=== PATIENT | female | born 1970 | race African-American/Black ===

== ENCOUNTER 2023-07-09 12:57 | Emergency (ER) | payer SELFPAY ==
[2023-07-09] MEDS ORDERED: NA CHLORIDE 0.9% 1,000 ML ONE ×2 (13:10→14:25)
[2023-07-09] MEDS ORDERED: METOCLOPRAMIDE 10 MG/2mL INJ ONE (13:24)
[2023-07-09 13:25] LABS: Absolute Eosinophils 0.2 K/uL (0-0.5); Absolute Lymphocytes (CBC) 1.6 K/uL (0.7-4.9); Absolute Monocytes 0.8 K/uL (0.1-1.3); Absolute Neutrophil 5.9 K/uL (1.8-8.0); Basophils % 0.5 % (0-1.3); Hematocrit 36.2 % (36.0-45.0); Hemoglobin 11.9 g/dL (12.0-15.0); MCH 27.8 pg (27.0-35.0); MCHC 32.7 g/dL (32.0-36.0); MPV 6.1 fL (7.6-11.3); Monocytes % 8.8 % (3.3-12.3); Neutrophils % 69.7 % (41.7-73.7); Platelets 299 thou/uL (152-406); RBC Red Blood Cell Count 4.26 M/uL (3.86-4.86); Red Cell Distribution Width 18.9 % (12.1-15.2)
[2023-07-09 13:46] LABS: Albumin 3.1 g/dL (3.4-5.0); Albumin/Globulin Ratio 0.7 (1.1-1.8); Anion Gap 10.8 mEq/L (5.0-15.0); Bilirubin Total 0.3 mg/dL (0.2-1.0); Globulin 4.3 g/dL (2.3-3.5); Potassium 3.8 mEq/L (3.5-5.1); Protein, Total 7.4 g/dL (6.4-8.2); Troponin High Sensitivity 42.4 pg/mL (<58.9)
--- NOTE | 2023-07-09 14:17 | RAD REPORT ---
EXAM DESCRIPTION: CT - Head Brain Wo Cont - 07/09/2023 2:00 pm CLINICAL HISTORY: Headache and vomiting COMPARISON: None TECHNIQUE: Computed axial tomography of the head was obtained. IV contrast was not requested. All CT scans are performed using dose optimization technique as appropriate and may include automated exposure control or mA/KV adjustment according to patient size. FINDINGS: An intracranial bleed is not seen The ventricles are normal in caliber No extra-axial fluid collection is noted. Mild low-density areas within periventricular, deep and subcortical white matter likely represent isc hemic changes secondary to small vessel disease. Old fracture medial wall of the left orbit Fluid within the sinuses/ mastoids is not seen. IMPRESSION: No acute intracranial abnormality is seen If patient's symptoms persist MRI of the brain would be recommended
[2023-07-09] MEDS ORDERED: PROMETHAZINE INJ 25 MG/ML AMP ONE (14:25)
--- NOTE | 2023-07-09 15:14 | EDPHYS ---
Physician Documentation [facility] Name: Natalia Ornelas Age: 52 yrs Sex: Female : 1970 Arrival Date: 07/09/2023 Time: 12:57 Bed 2 Private MD: ED Physician Lore Edouard HPI: 07/08 13:58 This 52 yrs old Black Female presents to ER via EMS with complaints of Nausea/Vomiting, sb4 Headache. 14:00 patient states she has been experiencing nausea, vomiting, and headache since about sb4 1030 AM. does report heavy alcohol drinking yesterday. states she woke up feeling okay, took all 5 of her BP meds, then started experiencing these symptoms. is not sure what meds she takes, but denies any changes in them. Historical: - Allergies: 13:03 No Known Allergies; kc6 - PMHx: 13:03 Hypertensive disorder; kc6 - PSHx: 13:03 knee surgery; kc6 - Immunization history:: Adult Immunizations up to date. - Infectious Disease History:: Denies. - Social history:: Smoking status: Patient reports the use of cigarette tobacco products, denies chronic smoking, but will smoke occasionally. ROS: 14:00 Constitutional: Negative for fever, chills, and weight loss, sb4 14:00 Abdomen/GI: Positive for nausea and vomiting, 14:00 Neuro: Positive for headache, 14:00 All other systems are negative, Exam: 14:00 Head/Face: Normocephalic, atraumatic. Eyes: Extra-ocular motions intact. Periorbital sb4 areas with no swelling, redness, or edema. Cardiovascular: Regular rate and rhythm with a normal S1 and S2. Respiratory: Lungs have equal breath sounds bilaterally, clear to auscultation and percussion. No rales, rhonchi or wheezes noted. No increased work of breathing, no retractions or nasal flaring. Abdomen/GI: Soft, non-tender, no distension. Skin: Warm, dry with normal turgor. Normal color with no rashes, no lesions, and no evidence of cellulitis. MS/ Extremity: Pulses equal, no cyanosis. Neurovascular intact. Full, normal range of motion. 14:00 Constitutional: The patient appears alert, awake, obviously ill, Vital Signs: 13:01 BP 166 / 122; Pulse 79; Resp 20 S; Pulse Ox 100% on R/A; Weight 100.7 kg (R); Height 5 kc6 ft. 7 in. (R); 13:18 BP 176 / 105; kc6 14:59 BP 181 / 85; Pulse 57; Resp 16 S; Pulse Ox 97% on R/A; kc6 15:18 BP 178 / 79; Pulse 58; Resp 16; Pulse Ox 100% ; ko1 13:01 Body Mass Index 34.77 (100.70 kg, 170.18 cm) kc6 MDM: 13:03 Patient medically screened. sb4 15:13 Data reviewed: vital signs, nurses notes, EMS record, lab test result(s), radiologic sb4 studies, and as a result, I will discharge patient. Counseling: I had a detailed discussion with the patient and/or guardian regarding the historical points, exam findings, and any diagnostic results supporting the discharge/admit diagnosis, lab results, radiology results, to return to the emergency department if symptoms worsen or persist or if there are any questions or concerns that arise at home. 07/08 13:08 Order name: CBC with Diff; Complete Time: 13:27 sb4 07/08 13:08 Order name: CMP; Complete Time: 13:48 sb4 07/08 13:08 Order name: Lipase; Complete Time: 13:48 sb4 07/08 13:08 Order name: Troponin HS; Complete Time: 13:48 sb4 07/08 13:21 Order name: Glucose, Ancillary Testing; Complete Time: 13:23 EDMS 07/08 13:37 Order name: Head Brain Wo Cont CT; Complete Time: 14:18 sb4 07/08 13:08 Order name: IV Saline Lock; Complete Time: 13:09 sb4 07/08 13:08 Order name: Labs collected and sent; Complete Time: 13:17 sb4 07/08 14:55 Order name: PO challenge; Complete Time: 15:04 sb4 Administered Medications: 13:17 Drug: NS 0.9% IV 1000 ml IV at 1 bolus Per protocol; 1000 mL bolus Route: IV; Rate: 1 kc6 bolus; Site: left antecubital; 13:27 Drug: metoCLOPramide IVP 10 mg IVP once; over 1 to 2 minutes Route: IVP; Site: left ko1 antecubital; 14:23 Follow up: Response: No adverse reaction; Nausea unchanged; Vomiting unchanged kc 14:38 Drug: Promethazine IVP 12.5 mg IVP once Route: IVP; Site: left antecubital; 6 15:00 Follow up: Response: No adverse reaction; Nausea is decreased 1 14:38 Drug: NS 0.9% IV 1000 ml IV at 1 bolus Per protocol; 1000 mL bolus Route: IV; Rate: 1 kc6 bolus; Site: left antecubital; 15:15 Follow up: Response: No adverse reaction; IV Status: Completed infusion; IV Intake: ko1 1000ml Disposition Summary: 07/09/23 15:13 Discharge Ordered Notes: Location: Home sb4 Problem: new sb4 Symptoms: have improved sb4 Condition: Stable sb4 Diagnosis - Nausea with vomiting, unspecified sb4 Followup: sb4 - With: Emergency Department - When: As needed - Reason: Trouble breathing, Worsening of condition Discharge Instructions: - Discharge Summary Sheet sb4 - Nausea and Vomiting, Adult sb4 Forms: - Patient Portal Instructions sb4 - Leadership Thank You Letter sb4 Prescriptions: - ondansetron 8 mg Oral Tablet,disintegrating - take 1 tablet ORAL route every 8 hours; 12 tablet; Refills: 0, Product sb4 Selection Permitted Signatures: Dispatcher [employer] Christi Barbosa RN RN kc6 Kristi Umanzor RN RN ko1 Nona Sanii, PAAriel PAAriel sb4 Corrections: (The following items were deleted from the chart) 13:39 13:39 Head Brain Wo Cont+CT.RAD.BRZ ordered. EDMS EDMS 14:52 14:52 Abdomen Pelvis Wo Con+CT.RAD.BRZ ordered. EDMS EDMS
--- NOTE | 2023-07-09 15:14 | ER ---
Nurse's Notes [facility] Name: Natalia Ornelas Age: 52 yrs Sex: Female : 1970 Arrival Date: 07/09/2023 Time: 12:57 Bed 2 Private MD: Diagnosis: Nausea with vomiting, unspecified Presentation: 07/08 13:01 Chief complaint: EMS states: n/v/, headache that started this morning. pt reports heavy kc6 ETOH use yesterday. pt actively vomiting bile in triage. 4mg of IV zofran given en route. Coronavirus screen: At this time, the client does not indicate any symptoms associated with coronavirus-19. Ebola Screen: No symptoms or risks identified at this time. Initial Sepsis Screen: Does the patient meet any 2 criteria? No. Patient's initial sepsis screen is negative. Does the patient have a suspected source of infection? No. Patient's initial sepsis screen is negative. Risk Assessment: Do you want to hurt yourself or someone else? Patient reports no desire to harm self or others. Onset of symptoms was July 09, 2023. 13:01 Method Of Arrival: EMS: [facility] kc6 13:01 Acuity: IJEOMA 2 kc6 Triage Assessment: 13:03 General: Appears in no apparent distress. uncomfortable, well groomed, well developed, kc6 Behavior is cooperative, appropriate for age. EENT: No signs and/or symptoms were reported regarding the EENT system. Neuro: Level of Consciousness is awake, alert, obeys commands, Oriented to person, place, time, situation, Appropriate for age Reports dizziness, headache weakness. Cardiovascular: Capillary refill < 3 seconds. Respiratory: Airway is patent Trachea midline Respiratory effort is even, unlabored, Respiratory pattern is regular, symmetrical. GI: Abdomen is round non-distended, Bowel sounds present X 4 quads. Abd is soft and non tender X 4 quads. Reports nausea, vomiting, Patient currently denies abdominal pain, diarrhea. : No signs and/or symptoms were reported regarding the genitourinary system. Derm: Skin is intact, is healthy with good turgor, Skin is diaphoretic, Skin is normal, Skin temperature is cool. Musculoskeletal: No signs and/or symptoms reported regarding the musculoskeletal system. Circulation, motion, and sensation intact. Capillary refill < 3 seconds, Range of motion: intact in all extremities. Historical: - Allergies: 13:03 No Known Allergies; kc6 - PMHx: 13:03 Hypertensive disorder; kc6 - PSHx: 13:03 knee surgery; kc6 - Immunization history:: Adult Immunizations up to date. - Infectious Disease History:: Denies. - Social history:: Smoking status: Patient reports the use of cigarette tobacco products, denies chronic smoking, but will smoke occasionally. Screenin:04 [facility] ED Fall Risk Assessment (Adult) History of falling in the last 3 months, kc6 including since admission No falls in past 3 months (0 pts) Confusion or Disorientation No (0 pts) Intoxicated or Sedated No (0 pts) Impaired Gait No (0 pts) Mobility Assist Device Used No (0 pt) Altered Elimination No (0 pt) Score/Fall Risk Level 0 - 2 = Low Risk. Abuse screen: Denies threats or abuse. Denies injuries from another. Nutritional screening: No deficits noted. Tuberculosis screening: No symptoms or risk factors identified. Assessment: 13:04 Reassessment: please see triage. kc6 13:30 Pain: Complains of pain in forehead and abdomen. GI: Pt is actively vomiting bile. ko1 14:04 Reassessment: Patient appears in no apparent distress at this time. No changes from kc6 previously documented assessment. Patient and/or family updated on plan of care and expected duration. Pain level reassessed. Patient is alert, oriented x 3, equal unlabored respirations, skin warm/dry/pink. 14:59 Reassessment: Patient appears in no apparent distress at this time. No changes from kc6 previously documented assessment. Patient and/or family updated on plan of care and expected duration. Pain level reassessed. Patient is alert, oriented x 3, equal unlabored respirations, skin warm/dry/pink. Vital Signs: 13:01 BP 166 / 122; Pulse 79; Resp 20 S; Pulse Ox 100% on R/A; Weight 100.7 kg (R); Height 5 kc6 ft. 7 in. (R); 13:18 BP 176 / 105; kc6 14:59 BP 181 / 85; Pulse 57; Resp 16 S; Pulse Ox 97% on R/A; kc6 15:18 BP 178 / 79; Pulse 58; Resp 16; Pulse Ox 100% ; ko1 13:01 Body Mass Index 34.77 (100.70 kg, 170.18 cm) kc6 ED Course: 13:01 Patient arrived in ED. kc6 13:03 Triage completed. kc6 13:03 Nona Saini PA-C is PHCP. sb4 13:03 Lore Edouard MD is Attending Physician. sb4 13:03 Arm band placed on. kc6 13:04 Maintain EMS IV. Dressing intact. Good blood return noted. Site clean \T\ dry. Gauge \T\ kevin 6 site: 20G LAC. 13:05 Patient has correct armband on for positive identification. Placed in gown. Bed in low kc6 position. Call light in reach. Side rails up X2. Client placed on continuous cardiac and pulse oximetry monitoring. NIBP monitoring applied. office assistant on. Warm blanket given. 13:09 Christi Ramon RN is Primary Nurse. kc6 14:01 Head Brain Wo Cont CT In Process Unspecified. EDMS 15:04 Diet: Patient given water. kc6 15:18 Provided Education on: call light. ko1 15:18 No provider procedures requiring assistance completed. IV discontinued, intact, ko1 bleeding controlled, No redness/swelling at site. Pressure dressing applied. Administered Medications: 13:17 Drug: NS 0.9% IV 1000 ml IV at 1 bolus Per protocol; 1000 mL bolus Route: IV; Rate: 1 kc6 bolus; Site: left antecubital; 13:27 Drug: metoCLOPramide IVP 10 mg IVP once; over 1 to 2 minutes Route: IVP; Site: left ko1 antecubital; 14:23 Follow up: Response: No adverse reaction; Nausea unchanged; Vomiting unchanged kc6 14:38 Drug: Promethazine IVP 12.5 mg IVP once Route: IVP; Site: left antecubital; kc6 15:00 Follow up: Response: No adverse reaction; Nausea is decreased ko1 14:38 Drug: NS 0.9% IV 1000 ml IV at 1 bolus Per protocol; 1000 mL bolus Route: IV; Rate: 1 kc6 bolus; Site: left antecubital; 15:15 Follow up: Response: No adverse reaction; IV Status: Completed infusion; IV Intake: ko1 1000ml Medication: 15:18 VIS not applicable for this client. ko1 Intake: 15:15 IV: 1000ml; Total: 1000ml. ko1 Outcome: 15:13 Discharge ordered by . sb4 15:31 Discharged to home via wheelchair, with family, ko1 15:31 Condition: improved 15:31 Discharge instructions given to patient, Instructed on discharge instructions, follow up and referral plans. medication usage, Demonstrated understanding of instructions, follow-up care, medications, Prescriptions given X 1, 15:32 Patient left the ED. ko1 Signatures: Dispatcher [employer] EDChristi Hatfield RN RN kc6 Kristi Umanzor RN RN ko1 Nona Saini, PA-C PA-C sb4 Corrections: (The following items were deleted from the chart) 13:04 13:01 Pulse 79bpm; Resp 20bpm; Spontaneous; Pulse Ox 100% RA; 100.7 kg Reported; Height kc6 5 ft. 7 in. Reported; BMI: 34.7; kc6 15:00 14:59 Reassessment: Patient appears in no apparent distress at this time. No changes kc6 from previously documented assessment. Patient and/or family updated on plan of care and expected duration. Pain level reassessed. Patient is alert, oriented x 3, equal unlabored respirations, skin warm/dry/pink. kc6 15:02 14:59 Pulse 57bpm; Resp 16bpm; Spontaneous; Pulse Ox 97% RA; kc6 kc6
[2023-07-09 16:10] VITALS: BP 178/79; O2SAT 100
== END 2023-07-09 15:32 | disposition home or self-care (01) ==
LOC: ER 12:57
DX: R11.2 Nausea with vomiting, unspecified (principal); R51.9 Headache, unspecified; F17.210 Nicotine dependence, cigarettes, uncomplicated
CPT/HCPCS: 36415; 70450; 80053; 82947; 83690; 84484; 85025; 96361; 96374; 96375; 99285; J2550; J2765; J7030

== ENCOUNTER 2023-11-07 06:12 | Observation (INO) | payer OTHER ==
[2023-11-02 10:43] LABS: Specific Gravity 1.008 (1.005-1.030); Sqamous Epithelial <5 /HPF (None Seen); Urine Bacteria <20 /HPF (<20); Urine Bilirubin NEGATIVE (Negative); Urine Blood Negative (Negative); Urine Clarity Turbid (Clear); Urine Color Colorless (Yellow); Urine Culture Reflex Order NOT NEEDED; Urine Glucose NEGATIVE (Negative); Urine Ketones NEGATIVE (Negative); Urine Microscopic Reflex YN ORDER UMIC; Urine Nitrite NEGATIVE (Negative); Urine Protein 1+ (Negative); Urine RBC None Seen /HPF (None Seen); Urine Urobilinogen Normal (Normal); Urine WBC <5 /HPF (<5)
[2023-11-02 10:48] LABS: Absolute Basophils 0.1 K/uL (0-0.5); Absolute Eosinophils 0.3 K/uL (0-0.5); Absolute Lymphocytes (CBC) 1.4 K/uL (0.7-4.9); Absolute Monocytes 0.5 K/uL (0.1-1.3); Absolute Neutrophil 4.7 K/uL (1.8-8.0); Basophils % 0.8 % (0-1.3); Eosinophils % 4.3 % (0-4.4); Hematocrit 41.2 % (36.0-45.0); Hemoglobin 13.2 g/dL (12.0-15.0); Lymphocytes % 20.7 % (15.3-44.8); MCH 28.3 pg (27.0-35.0); MCHC 32.1 g/dL (32.0-36.0); MCV 88.3 fL (80-100); MPV 6.6 fL (7.6-11.3); Monocytes % 7.2 % (3.3-12.3); Platelets 300 thou/uL (152-406); RBC Red Blood Cell Count 4.67 M/uL (3.86-4.86); Red Cell Distribution Width 15.7 % (12.1-15.2)
[2023-11-02 10:51] LABS: PT Prothrombin Time 10.2 SECONDS (9.4-12.5); PTT, Activated Partial Thromb 29.6 SECONDS (24.3-36.9); Protime INR 0.91
--- NOTE | 2023-11-02 10:59 | RAD REPORT ---
EXAM DESCRIPTION: Madison Jarquin (2 Views)11/02/2023 10:45 am CLINICAL HISTORY: Preop for hip surgery COMPARISON: None FINDINGS: The lungs appear clear of acute infiltrate. The heart is mildly enlarged IMPRESSION: No acute abnormalities displayed
[2023-11-02 11:00] LABS: Albumin 3.6 g/dL (3.4-5.0); Albumin/Globulin Ratio 0.8 (1.1-1.8); Anion Gap 11.4 mEq/L (5.0-15.0); Bilirubin Total 0.4 mg/dL (0.2-1.0); Globulin 4.3 g/dL (2.3-3.5); Potassium 4.4 mEq/L (3.5-5.1); Protein, Total 7.9 g/dL (6.4-8.2)
--- NOTE | 2023-11-03 13:30 | EKG ---
Test Date: 2023-11-02 Test Time: 10:24:33 Mink Slicer: JUVENTINO MEASUREMENT RESULTS: Intervals: Rate: 69 AL: 250 QRSD: 100 QT: 430 QTc: 460 Melbeta: P: 65 AL: 250 QRS: 66 T: 70 INTERPRETIVE STATEMENTS: Sinus rhythm with 1st degree AV block Otherwise normal ECG No previous ECG available for comparison Electronically Signed On 11-03-23 13:28:04 CDT by Sterling Ramos
[~2023-11-07 06:12] MED LIST: BUPIVACAINE 0.75% (PF) 2 ML SP ONE; DEXMEDETOMIDINE HCL 200 MCG/2 ML VIAL ONE; EPINEPHRINE 1 MG/ML VIAL ONE; MAGNESIUM SULFATE 1 gm IVPB 1 GM/100 ML BAG IV ONE; MORPHINE SULFATE/PF 1 MG/ML (10 ML AMP) ONE; ROPLVACAINE HCL 0 ML ONE; dexAMETHasone 10 MG/ML VIAL ONE
[2023-11-07] MEDS ORDERED: MORPHINE SULFATE/PF 1 MG/ML (10 ML AMP) ONE (06:24)
[2023-11-07] MEDS ORDERED: dexAMETHasone 10 MG/ML VIAL ONE (06:24)
[2023-11-07] MEDS ORDERED: MAGNESIUM SULFATE 1 gm IVPB 1 GM/100 ML BAG IV ONE (06:24)
[2023-11-07] MEDS ORDERED: DEXMEDETOMIDINE HCL 200 MCG/2 ML VIAL ONE (06:24)
[2023-11-07] MEDS ORDERED: EPINEPHRINE 1 MG/ML VIAL ONE ×2 (06:24)
[2023-11-07] MEDS ORDERED: FENTANYL CITR 100 MCG/2 ML ONE (06:24)
[2023-11-07] MEDS ORDERED: ROPLVACAINE HCL 40 ML ONE (06:24)
[2023-11-07] MEDS ORDERED: BUPIVACAINE 0.75% (PF) 2 ML SP ONE (06:24)
[2023-11-07] MEDS ORDERED: ONDANSETRON 4 MG/2 ML VIAL ONE (06:25)
[2023-11-07] MEDS ORDERED: MIDAZOLAM HCL 2 MG/2 ML INJ ONE ×2 (06:26→06:59)
[2023-11-07] MEDS: Ringers Lactate 1,000 ML IV ONE ×3 (06:29→10:00)
[2023-11-07] MEDS: GABAPENTIN 100 MG CAP ONE (06:35)
[2023-11-07] MEDS: CELECOXIB 100 MG CAPSULE ONE (06:35)
[2023-11-07] MEDS: ACETAMINOPHEN 500 MG TAB ONE (06:35)
[2023-11-07] MEDS: Oxycodone HCl/Acetaminophen 5/325 MG TAB ONE (06:35)
[2023-11-07] MEDS ORDERED: LIDOCAINE 2% MPF 5 ML VIAL ONE ×3 (06:38→07:35)
[2023-11-07] MEDS ORDERED: LIDOCAINE 1% MPF 5 ML VIAL ONE (06:38)
[2023-11-07] MEDS: TRANEXAMIC ACID 1,000 MG/10 ML VIAL IV ONE (06:40)
[2023-11-07] MEDS: CEFAZOLIN SODIUM 2 GM/VIAL ONE (07:00)
[2023-11-07] MEDS ORDERED: KETAMINE HCL IN 0.9 % NACL 50 MG/5 ML SYRINGE IV ONE (07:35)
[2023-11-07] MEDS ORDERED: EPHEDRINE SULF 50 MG/ML VIAL ONE (08:16)
[2023-11-07] MEDS ORDERED: propofoL 200 MG/20 ML VIAL IV ONE (09:40)
[2023-11-07] MEDS ORDERED: DOCUSATE NA 100 MG CAP PO PRN (10:24)
--- NOTE | 2023-11-07 10:32 | P.BOP ---
Preoperative diagnosis: right hip severe arthritis Postoperative diagnosis: same Primary procedure: right total hip arthoplasty Estimated blood loss: 100 ccs Anesthesia: General Complications: Other Complications: Crack of greater trochanter tip, hook plate placed. Transferred to: Recovery Room Condition: Good
--- NOTE | 2023-11-07 10:53 | RAD REPORT ---
EXAM DESCRIPTION: RAD - Hip Right 1 View - 11/07/2023 10:03 am CLINICAL HISTORY: RT TOTAL HIP COMPARISON: No comparisons TECHNIQUE: Right hip, 3 intraoperative views. FINDINGS: Components of a right hip prothesis have been placed, unclear whether the femoral head com ponent was placed on the last image sent to PACs. Hardware is in expected location. Other surgical me tallic instruments in place which obscure evaluation. IMPRESSION: Intraoperative right hip prosthesis components as above.
[2023-11-07] MEDS: HYDROMORPHONE HCL 1 MG/ML INJ ONE (11:05)
--- OUTSIDE RECORDS SUMMARY | 2023-11-07 11:18 | XMS REPORT | Continuity of Care Document ---
Author Name Unknown Address [address] [facility] [address] [place] [address] [facility] thconnect Address [address] [facility] [place] [address] Care Team Providers Care Assembler For Puller Over Hand Name Role Phone Elena Higgins Primary Care Physician Medications Ordered Medication Name Filled Medication Name Start Date Stop Date Current Medication? Ordering Clinician Indication Dosage Frequency Signature (SIG) Comments Components Source losartan 100 mg tablet 15 00:00: 00 Yes mg Francisco Lim chlorthalid one 50 mg tablet 15 00:00: 00 Yes 1mg Francisco Lim amlodipine 10 mg tablet -15 00:00: 00 Yes 1mg Francisco Lim clonidine HCl 0.2 mg tablet 15 00:00: 00 Yes 1mg Francisco Lim cyclobenzap rine 10 mg tablet -15 00:00: 00 Yes 1mg Francisco Lim chlorthalid one 25 mg tablet 6-20 00:00: 00 Yes 1mg Francisco Lim amoxicillin 875 mg-potassiu m clavulanate 125 mg tablet -08 00:00: 00 Yes 1mg Francisco Lim clonidine HCl 0.2 mg tablet 5-08 00:00: 00 Yes 1mg Francisco Lim Vitamin D3 25 mcg (1,000 unit) tablet 5-08 00:00: 00 Yes 1(1,000 unit) Francisco Lim chlorthalid one 25 mg tablet 5- 00:00: 00 Yes 1mg Francisco Lim losartan 100 mg tablet 4-08 00:00: 00 Yes mg Francisco Lim amlodipine 10 mg tablet 06-18 00:00: 00 Yes 1mg Francisco Lim meloxicam 15 mg tablet 06-18 00:00: 00 Yes 1mg Francisco Lim tizanidine 2 mg tablet 06-18 00:00: 00 Yes 1mg Francisco Lim clonidine HCl 0.1 mg tablet 06-18 00:00: 00 Yes 1mg Francisco Lim Vital Signs Vital Name Observation Time Observation Value Comments S abel BP Systolic 2023-09-27 11:08:00 110 mm[Hg] Step hen F Raphael BP Diastolic 2023-09-27 11:08:00 82 mm[Hg] Miller phen F Raphael Weight Measured 2023-09-27 11:08:00 233.00 pounds Francisco Lim Height Measured 2023-09-27 11:08:00 67.00 inches Francisco Lim Body Temperature 2023-09-27 11:08:00 98.00 degrees Francisco Lim Heart Rate 2023-09-27 11:08:00 64.00 /min Serena en F Raphael Respiratory Rate 2023-09-27 11:08:00 20.00 /min Francisco F Raphael BP Systolic 2023-09-25 13:18:00 191 mm[Hg] Step hen F Raphael BP Diastolic 2023-09-25 13:18:00 112 mm[Hg] Miller phen F Raphael Weight Measured 2023-09-25 13:18:00 231.40 pounds Francisco Lim Height Measured 2023-09-25 13:18:00 67.00 inches Francisco Lim Body Temperature 2023-09-25 13:18:00 97.30 degrees Francisco Lim Heart Rate 2023-09-25 13:18:00 75.00 /min Serena en F Raphael Respiratory Rate 2023-09-25 13:18:00 19.00 /min Francisco F Rapahel Respiratory Rate 2023-07-19 16:54:00 18.00 /min Francisco F Raphael BP Systolic 2023-07-19 16:54:00 164 mm[Hg] Step hen F Raphael BP Diastolic 2023-07-19 16:54:00 110 mm[Hg] Miller phen F Raphael Weight Measured 2023-07-19 16:54:00 229.40 pounds Francisco F Raphael Height Measured 2023-07-19 16:54:00 67.00 inches Francisco F Raphael Body Temperature 2023-07-19 16:54:00 97.40 degrees Francisco F Raphael Heart Rate 2023-07-19 16:54:00 74.00 /min Serena en F Raphael BP Systolic 2023-07-12 14:44:00 185 mm[Hg] Step hen F Raphael BP Diastolic 2023-07-12 14:44:00 127 mm[Hg] Miller phen F Raphael Weight Measured 2023-07-12 14:44:00 Francisco F Raphael Height Measured 2023-07-12 14:44:00 67.00 inches Francisco F Raphael Body Temperature 2023-07-12 14:44:00 97.20 degrees Francisco F Raphael Heart Rate 2023-07-12 14:44:00 64.00 /min Serena en F Raphael Respiratory Rate 2023-07-12 14:44:00 Francisco F Raphael Body Temperature 2023-06-19 13:25:00 98.10 degrees Francisco F Raphael Heart Rate 2023-06-19 13:25:00 70.00 /min Serena en F Raphael Respiratory Rate 2023-06-19 13:25:00 20.00 /min Francisco F Raphael BP Systolic 2023-06-19 13:25:00 170 mm[Hg] Step hen F Raphael BP Diastolic 2023-06-19 13:25:00 120 mm[Hg] Miller phen F Raphael Weight Measured 2023-06-19 13:25:00 226.00 pounds Francisco Lim Height Measured 2023-06-19 13:25:00 67.00 inches Francisco Lim Encounters Start Date/Time End Date/Time Encounter Type Ad[facility] Encounter ID Source 2023-10-17 00:00:00 2023-10-17 00:00:[address] [facility] [id number] Francisco Lim 2023-09-27 10:54:24 2023-09-27 10:54:[address] [facility] [id number] Francisco Lim 2023-09-27 00:00:00 2023-09-27 00:00:00 Outpatient Visit SFA [id number] Francisco Lim 2023-09-25 13:18:24 2023-09-25 13:18:24 Outpatient SFA SFA [id number] Francisco Lim 2023-09-25 00:00:00 2023-09-25 00:00:00 Outpatient Visit SFA [id number] Francisco Lim 2023-07-19 16:50:10 2023-07-19 16:50:10 Outpatient SFA SFA [id number] Francisco Lim 2023-07-18 00:00:00 2023-07-18 00:00:00 Outpatient Visit SFA [id number] Francisco Lim 2023-07-12 14:43:51 2023-07-12 14:43:51 Outpatient SFA SFA [id number] Francisco Lim 2023-07-12 00:00:00 2023-07-12 00:00:00 Outpatient Visit SFA [id number] Francisco Lim 2023-07-07 09:43:34 2023-07-07 09:43:34 Outpatient SFA SFA [id number] Francisco Lim 2023-06-22 08:31:05 2023-06-22 08:31:05 Outpatient SFA SFA [id number] Francisco Lim 2023-06-22 00:00:00 2023-06-22 00:00:00 Outpatient Visit SFA [id number] Francisco Lim 2023-06-19 13:23:53 2023-06-19 13:23:53 Outpatient SFA SFA [id number] Francisco Lim 2023-06-19 00:00:00 2023-06-19 00:00:[address] [facility] [id number] Francisco Lim Results Test Description Test Time Test Comments Results Result Co mments Source RENIN [id number] 00:00:00* Test Item Value Reference Range Interpretation Comme nts RENIN ACTIVITY (test code = 80298) 1.4 ng/mL/hr Francisco Antony AustinRENIN [id number] 00:00:00* Test Item Value Reference Range Interpretation Comme nts RENIN ACTIVITY (test code = 28961) 1.4 ng/mL/hr Francisco Cassia AustinRENIN [id number] 00:00:00* Test Item Value Reference Range Interpretation Comme nts RENIN ACTIVITY (test code = 44336) 1.4 ng/mL/hr Francisco Antony AustinRENIN [id number] 00:00:00* Test Item Value Reference Range Interpretation Comme nts RENIN ACTIVITY (test code = 09922) 1.4 ng/mL/hr Francisco LimMETANEPHRINES, [id number] 19:04:24* Test Item Value Reference Range Interpretation Comme nts NORMETANEPHRINE, FREE (test code = 64256) 0.51 nmol/L 0.00-0.89 METANEPHRINE, FREE (test code = 99753) 0.16 nmol/L 0.00-0.49 INTERPRETATION (test code = 19507) See Note INTERPRETIVE INFORMATION: Metanephrines, Plasma (Free)This test is useful in the detection of pheochromocytoma, a rare neuroendocrine tumor. The majority of patients with pheochromocytoma have a plasma normetanephrine concentration in excess of 2.2 nmol/L and/or a metanephrine concentration in excess of 1.1 nmol/L. Increased concentrations of these analytes serve as confirmation for diagnosis. Patients with essential hypertension and plasma concentrations of normetanephrine below 0.9 nmol/L and a metanephrine concentration below 0.5 nmol/L, can be excluded from further testing. If clinical suspicion remains, repeat testing or testing for metanephrines in a 24-hr. urine specimen should be considered.This test was developed and its performance characteristics determined by [employer]. It has not been cleared or approved by the [place] Food and Drug Administration. This test was performed in a CLIA certified laboratory and is intended for clinical purposes. TESTING PERFORMED AT [facility], [address] [address] [facility] [place]. [id number] CLIA NO. [id number] METANEPHRINES, [id number] 00:00:00* Test Item Value Reference Range Interpretation Comme nts NORMETANEPHRINE, FREE (test code = 59302) 0.51 nmol/L METANEPHRINE, FREE (test cod e = 27489) 0.16 nmol/L INTERPRETATION (test code = 27920) See Note Francisco Cassia AustinMETANEPHRINES, [id number] 00:00:00* Test Item Value Reference Range Interpretation Comme nts NORMETANEPHRINE, FREE (test code = 33104) 0.51 nmol/L METANEPHRINE, FREE (test cod e = 77116) 0.16 nmol/L INTERPRETATION (test code = 53657) See Note Francisco Cassia AustinMETANEPHRINES, [id number] 00:00:00* Test Item Value Reference Range Interpretation Comme nts NORMETANEPHRINE, FREE (test code = 59709) 0.51 nmol/L METANEPHRINE, FREE (test cod e = 75029) 0.16 nmol/L INTERPRETATION (test code = 87795) See Note Francisco Cassia AustinMETANEPHRINES, [id number] 00:00:00* Test Item Value Reference Range Interpretation Comme nts NORMETANEPHRINE, FREE (test code = 03774) 0.51 nmol/L METANEPHRINE, FREE (test cod e = 89002) 0.16 nmol/L INTERPRETATION (test code = 19276) See Note Francisco Cassia [id number] 11:10:55* Test Item Value Reference Range Interpretation Comme nts ALDOSTERONE (test code = 4201) 13.1 NG/DL SEE BELOW EFFECTIVE 2020, PLEASE NOTE NEW REFERENCE RANGE. REFERENCE RANGE INFORMATION POSTURE INTERVAL - UPRIGHT. . . . . . . . . 4.0-31.0 NG/DL - SUPINE . . . . . . . . . . <16.0 NG/DL - NOT SPECIFIED. . . . . . . <=31.0 NG/DL SERUM ALDOSTERONE LEVELS ARE SENSITIVE TO SODIUM INTAKE AND WHETHERTHE PATIENT IS UPRIGHT OR SUPINE. HIGH SODIUM INTAKE MAY SUPPRESSALDOSTERONE LEVELS IN THE SERUM WHILE LOW SODIUM INTAKE MAY RESULT INELEVATION OF SERUM ALDOSTERONE. REFERENCE INTERVALS ARE BASED ONNORMAL SODIUM INTAKE. ALDOSTERONE AND RENIN RESULTS MAY BE AFFECTEDBY CERTAIN CLASSES OF ANTI-HYPERTENSIVE DRUGS, NSAIDs, POTASSIUMSTATUS, AND DIURETICS, PARTICULARLY MINERALOCORTICOID ANTAGONISTS. VITAMIN D, 25 [id number] 06:32:43* Test Item Value Reference Range Interpretation Comme [facility] VITAMIN D, 25 OH (test code = 4958) 16 NG/ML SEE BELOW L NOTE: 25-HYDR OXYVITAMIN D ASSAY INCLUDES 25-HYDROXYVITAMIN D2 AND D3. INTERPRETIVE RANGES PEDIATRIC (<17 YEARS) . . . . . . . . . . . NG/ML 20-100ADULT: INSUFFICIENT . . . . . . . . . . . . . . NG/ML <20 SUBOPTIMAL . . . . . . . . . . . . . . . NG/ML 20-29 OPTIMAL . . . . . . . . . . . . . . . . . NG/ML 30-100 UNLESS OTHERWISE INDICATED, ALL TESTING PERFORMED AT [facility] [address] [place] [address] [employer] SUPERVISOR: DARSHAN TRINIDAD M.D. [place] NUMBER [id number] [facility] [place]. [id number] TSH, THIRD [id number] 06:32:15* Test Item Value Reference Range Interpretation Comme [facility] TSH, THIRD GENERATION (test code = 2821) 1.090 UIU/ML 0.400-4.100 COMPREHENSIVE METABOLIC [id number] 06:31:35* Test Item Value Reference Range Interpretation Comme [facility] GLUCOSE (test code = 2217) 101 MG/DL 70-99 H BUN (test code = 2208) 25 MG/DL 6-20 H CREATININE (test code = 2214) 1.62 MG/DL 0.60-1.30 H eGFR (2020 CKD-EPI) (test co de = 78776) 38 ML/MIN/1.73 >60 L CALC BUN/CREAT (test code = 2235) 15 RATIO 6-28 SODIUM (test code = 2231) 138 MEQ/L 133-146 POTASSIUM (test code = 2228) 4.5 MEQ/L 3.5-5.4 CHLORIDE (test code = 2215) 102 MEQ/L 95-107 CARBON DIOXIDE (test code = 2206) 23 MEQ/L 19-31 CALCIUM (test code = 2209) 10.0 MG/DL 8.5-10.5 PROTEIN, TOTAL (test code = 2229) 7.2 G/DL 6.1-8.3 ALBUMIN (test code = 2201) 4.3 G/DL 3.5-5.2 CALC GLOBULIN (test code = 2240) 2.9 G/DL 1.9-3.7 CALC A/G RATIO (test code = 2234) 1.5 RATIO 1.0-2.6 BILIRUBIN, TOTAL (test code = 220) 0.4 MG/DL <=1.2 ALKALINE PHOSPHATASE (test code = 220) 110 U/L 40-132 AST (test code = 2218) 16 U/L 9-40 ALT (test code = 221) 11 U/L 5-40 LIPID [id number] 06:31:35* Test Item Value Reference Range Interpretation Comme nts CHOLESTEROL (test code = 2210) 267 MG/DL <200 H TRIGLYCERIDES (test code = 2232) 88 MG/DL <150 HDL CHOLESTEROL (test code = 2220) 133 MG/DL >39 CALC LDL CHOL (test code = 2237) 115 MG/DL <100 H NOTE: CALCULATED LDL IS BASED ON MIRIAM-LUKE METHOD WHICHINCLUDES ADJUSTABLE TRIGLYCERIDE:VLDL CHOLESTEROL RATIO.THIS FACTOR VARIES BY MEASURED TRIGLYCERIDE AND NON-HDLCHOLESTEROL CONCENTRATIONS WITH INCREASED CALCULATED LDL SEENIN HIGHER TRIGLYCERIDE OR LOWER NON-HDL SPECIMENS. FOR MOREINFORMATION, SEE CLIENT ANNOUNCEMENT AT [email or web address] RISK RATIO LDL/HDL (test code = 2238) 0.86 RATIO <3.22 COMPREHENSIVE METABOLIC PANEL [ADDED]2023-07-13 00:00:00* Test Item Value Reference Range Interpretation Comme nts GLUCOSE (test code = 2217) 101 MG/DL BUN (test code = 2208) 25 MG/DL CREATININE (test code = 2214) 1.62 MG/DL eGFR (2020 CKD-EPI) (test co de = 56758) 38 ML/MIN/1.73 CALC BUN/CREAT (test code = 2235) 15 RATIO SODIUM (test code = 2231) 138 MEQ/L POTASSIUM (test code = 2228) 4.5 MEQ/L CHLORIDE (test code = 2215) 102 MEQ/L CARBON DIOXIDE (test code = 2206) 23 MEQ/L CALCIUM (test code = 2209) 10.0 MG/DL PROTEIN, TOTAL (test code = 2229) 7.2 G/DL ALBUMIN (test code = 2201) 4.3 G/DL CALC GLOBULIN (test code = 2240) 2.9 G/DL CALC A/G RATIO (test code = 2234) 1.5 RATIO BILIRUBIN, TOTAL (test code = 2207) 0.4 MG/DL ALKALINE PHOSPHATASE (test code = 2204) 110 U/L AST (test code = 221) 16 U/L ALT (test code = 2219) 11 U/L Francisco Antony RaphaelLIPID PANEL [ADDED]2023-07-13 00:00:00* Test Item Value Reference Range Interpretation Comme nts CHOLESTEROL (test code = 2210) 267 MG/DL TRIGLYCERIDES (test code = 2232) 88 MG/DL HDL CHOLESTEROL (test code = 2220) 133 MG/DL CALC LDL CHOL (test code = 2237) 115 MG/DL RISK RATIO LDL/HDL (test cod e = 2238) 0.86 RATIO Farncisco LimTSH, THIRD GENERATION [ADDED]2023-07-13 00:00:00* Test Item Value Reference Range Interpretation Comme nts TSH, THIRD GENERATION (test code = 2821) 1.090 UIU/ML Francisco Antony RaphaelVITAMIN D, 25 OH [ADDED]2023-07-13 00:00:00* Test Item Value Reference Range Interpretation Comme nts VITAMIN D, 25 OH (test code = 4958) 16 NG/ML Francisco [id number] 00:00:00* Test Item Value Reference Range Interpretation Comme nts ALDOSTERONE (test code = 4201) 13.1 NG/DL Francisco Antony RaphaelCOMPREHENSIVE METABOLIC PANEL [ADDED]2023-07-13 00:00:00* Test Item Value Reference Range Interpretation Comme nts GLUCOSE (test code = 2217) 101 MG/DL BUN (test code = 2208) 25 MG/DL CREATININE (test code = 2214) 1.62 MG/DL eGFR (2020 CKD-EPI) (test co de = 23050) 38 ML/MIN/1.73 CALC BUN/CREAT (test code = 2235) 15 RATIO SODIUM (test code = 2231) 138 MEQ/L POTASSIUM (test code = 2228) 4.5 MEQ/L CHLORIDE (test code = 2215) 102 MEQ/L CARBON DIOXIDE (test code = 2206) 23 MEQ/L CALCIUM (test code = 2209) 10.0 MG/DL PROTEIN, TOTAL (test code = 2229) 7.2 G/DL ALBUMIN (test code = 2201) 4.3 G/DL CALC GLOBULIN (test code = 2240) 2.9 G/DL CALC A/G RATIO (test code = 2234) 1.5 RATIO BILIRUBIN, TOTAL (test code = 2207) 0.4 MG/DL ALKALINE PHOSPHATASE (test code = 2204) 110 U/L AST (test code = 2218) 16 U/L ALT (test code = 2219) 11 U/L Francisco Cassia RaphaelLIPID PANEL [ADDED]2023-07-13 00:00:00* Test Item Value Reference Range Interpretation Comme nts CHOLESTEROL (test code = 2210) 267 MG/DL TRIGLYCERIDES (test code = 2232) 88 MG/DL HDL CHOLESTEROL (test code = 2220) 133 MG/DL CALC LDL CHOL (test code = 2237) 115 MG/DL RISK RATIO LDL/HDL (test cod e = 2238) 0.86 RATIO Francisco Antony RaphaelTSH, THIRD GENERATION [ADDED]2023-07-13 00:00:00* Test Item Value Reference Range Interpretation Comme nts TSH, THIRD GENERATION (test code = 2821) 1.090 UIU/ML Francisco Cassia RaphaelVITAMIN D, 25 OH [ADDED]2023-07-13 00:00:00* Test Item Value Reference Range Interpretation Comme nts VITAMIN D, 25 OH (test code = 4958) 16 NG/ML Francisco Antony [id number] 00:00:00* Test Item Value Reference Range Interpretation Comme nts ALDOSTERONE (test code = 4201) 13.1 NG/DL Francisco Cassia RaphaelCOMPREHENSIVE METABOLIC PANEL [ADDED]2023-07-13 00:00:00* Test Item Value Reference Range Interpretation Comme nts GLUCOSE (test code = 2217) 101 MG/DL BUN (test code = 2208) 25 MG/DL CREATININE (test code = 2214) 1.62 MG/DL eGFR (2020 CKD-EPI) (test co de = 13367) 38 ML/MIN/1.73 CALC BUN/CREAT (test code = 2235) 15 RATIO SODIUM (test code = 2231) 138 MEQ/L POTASSIUM (test code = 2228) 4.5 MEQ/L CHLORIDE (test code = 2215) 102 MEQ/L CARBON DIOXIDE (test code = 2206) 23 MEQ/L CALCIUM (test code = 2209) 10.0 MG/DL PROTEIN, TOTAL (test code = 2229) 7.2 G/DL ALBUMIN (test code = 2201) 4.3 G/DL CALC GLOBULIN (test code = 2240) 2.9 G/DL CALC A/G RATIO (test code = 2234) 1.5 RATIO BILIRUBIN, TOTAL (test code = 2207) 0.4 MG/DL ALKALINE PHOSPHATASE (test code = 2204) 110 U/L AST (test code = 2218) 16 U/L ALT (test code = 2219) 11 U/L Francisco Antony RaphaelLIPID PANEL [ADDED]2023-07-13 00:00:00* Test Item Value Reference Range Interpretation Comme nts CHOLESTEROL (test code = 2210) 267 MG/DL TRIGLYCERIDES (test code = 2232) 88 MG/DL HDL CHOLESTEROL (test code = 2220) 133 MG/DL CALC LDL CHOL (test code = 2237) 115 MG/DL RISK RATIO LDL/HDL (test cod e = 2238) 0.86 RATIO Francisco Antony RaphaelTSH, THIRD GENERATION [ADDED]2023-07-13 00:00:00* Test Item Value Reference Range Interpretation Comme nts TSH, THIRD GENERATION (test code = 2821) 1.090 UIU/ML Francisco Cassia RaphaelVITAMIN D, 25 OH [ADDED]2023-07-13 00:00:00* Test Item Value Reference Range Interpretation Comme nts VITAMIN D, 25 OH (test code = 4958) 16 NG/ML Francisco Antony [id number] 00:00:00* Test Item Value Reference Range Interpretation Comme nts ALDOSTERONE (test code = 4201) 13.1 NG/DL Francisco Cassia RaphaelCOMPREHENSIVE METABOLIC PANEL [ADDED]2023-07-13 00:00:00* Test Item Value Reference Range Interpretation Comme nts GLUCOSE (test code = 2217) 101 MG/DL BUN (test code = 2208) 25 MG/DL CREATININE (test code = 2214) 1.62 MG/DL eGFR (2020 CKD-EPI) (test co de = 77639) 38 ML/MIN/1.73 CALC BUN/CREAT (test code = 2235) 15 RATIO SODIUM (test code = 2231) 138 MEQ/L POTASSIUM (test code = 2228) 4.5 MEQ/L CHLORIDE (test code = 2215) 102 MEQ/L CARBON DIOXIDE (test code = 2206) 23 MEQ/L CALCIUM (test code = 2209) 10.0 MG/DL PROTEIN, TOTAL (test code = 2229) 7.2 G/DL ALBUMIN (test code = 2201) 4.3 G/DL CALC GLOBULIN (test code = 2240) 2.9 G/DL CALC A/G RATIO (test code = 2234) 1.5 RATIO BILIRUBIN, TOTAL (test code = 2207) 0.4 MG/DL ALKALINE PHOSPHATASE (test code = 2204) 110 U/L AST (test code = 2218) 16 U/L ALT (test code = 2219) 11 U/L Francisco LimLIPID PANEL [ADDED]2023-07-13 00:00:00* Test Item Value Reference Range Interpretation Comme nts CHOLESTEROL (test code = 2210) 267 MG/DL TRIGLYCERIDES (test code = 2232) 88 MG/DL HDL CHOLESTEROL (test code = 2220) 133 MG/DL CALC LDL CHOL (test code = 2237) 115 MG/DL RISK RATIO LDL/HDL (test cod e = 2238) 0.86 RATIO Francisco LimTSH, THIRD GENERATION [ADDED]2023-07-13 00:00:00* Test Item Value Reference Range Interpretation Comme nts TSH, THIRD GENERATION (test code = 2821) 1.090 UIU/ML Francisco LimVITAMIN D, 25 OH [ADDED]2023-07-13 00:00:00* Test Item Value Reference Range Interpretation Comme nts VITAMIN D, 25 OH (test code = 4958) 16 NG/ML Francisco [id number] 00:00:00* Test Item Value Reference Range Interpretation Comme nts ALDOSTERONE (test code = 4201) 13.1 NG/DL Francisco Cassia Raphael Notes Date/Time Note Provider Source [place] CassiaRomel [facility]2024-07-17 00:00:00 [facility]2024-07-15 00:00:00 [facility]2024-05-07 00:00:00 [facility]2024-05-01 00:00:00 [facility]2024-04-11 00:00:00 [facility]2024-04-08 00:00:00 [facility]
[2023-11-07 11:40] LABS: Hematocrit 36.8 % (36.0-45.0); Hemoglobin 11.8 g/dL (12.0-15.0)
[2023-11-07] MEDS ORDERED: METOCLOPRAMIDE 10 MG/2mL INJ IV PRN (11:52)
[2023-11-07] MEDS: CEFAZOLIN 1 GM in NA CHLORIDE 0.9% 50 ML IVPB SCH (12:06)
[2023-11-07] MEDS: ONDANSETRON 4 MG/2 ML VIAL IV PRN (12:07)
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
[2023-11-07] MEDS: NA CHLORIDE 0.9% 1,000 ML IV SCH (17:21)
[2023-11-07 17:27] LABS: Hematocrit 38.6 % (36.0-45.0); Hemoglobin 12.4 g/dL (12.0-15.0)
[2023-11-07] MEDS: cloNIDine HCL 0.1 MG TAB PO SCH (20:23)
[2023-11-07] MEDS: DIPHENHYDRAMINE 50 MG/ML VIAL IV PRN (21:35)
[2023-11-07] MEDS: HYDROCODONE/APAP 7.5/325 MG TAB PO PRN (23:03)
[2023-11-08] MEDS: MORPHINE 2 MG/ML SYR IV ONE (02:14)
[2023-11-08 07:22] LABS: Hematocrit 33.4 % (36.0-45.0); Hemoglobin 11.3 g/dL (12.0-15.0)
[2023-11-08 07:32] LABS: Anion Gap 8.8 mEq/L (5.0-15.0); Potassium 3.8 mEq/L (3.5-5.1)
[2023-11-08] MEDS: AMLODIPINE 10 MG TAB PO SCH (08:32)
[2023-11-08] MEDS: ENOXAPARIN 40 MG/0.4 ML SQ SCH (08:32)
[2023-11-08] MEDS: NA CHLORIDE 0.9% 1,000 ML IV SCH (08:34)
[2023-11-08] MEDS: LOSARTAN POTASSIUM 50 MG TABLET PO SCH (08:35)
[2023-11-08] MEDS ORDERED: HOME MED 1 EA UNK (Losartan Potassium [Losartan Potassium] 100 MG Tablet) PO SCH (09:00)
--- NOTE | 2023-11-08 09:06 | OP ---
Date of Procedure: 11/07/2023 Surgeon: Eliseo Shaikh MD Preoperative Diagnosis: Right hip severe arthritis. Postoperative Diagnosis: Right hip severe arthritis. Procedure Performed: Right hip total hip arthroplasty using the [employer]ident system as well as a hook thomas te from the [employer]. Estimated Blood Loss: 100 cc. There was a fracture of the trochanter, which was repaired with a hook plate. No other changes from normal total hip arthroplasty. Indications: Ms. Ornelas is a 53-year-old female, who unfortunately has been troubled with the right h ip for quite some time with severe arthritic changes and central destruction of the hip joint. Risks , benefits, and alternatives of different methods of treating this has been discussed with her as con servative measures have not been helpful. The patient states she understands things as presented and wishes to proceed. Description Of Procedure: The patient was taken to the operating room. Spinal anesthesia was perfor med. She was then rolled left side down with all of her bony prominences being checked on axillary r oll. Following this, the right lower extremity was then prepped and draped in usual sterile fashion for the procedure. A standard posterolateral incision was then taken down carefully through skin and soft tissues. Meticulous hemostasis being maintained using Bovie electrocautery. There was a signi ficant amount of adipose tissue; however, this was followed until the fascia was encountered. A smal l stab wound was made in the fascia and the gluteal tendon was palpated which allows for visualizatio n that the incision was in the correct position. This was then taken up proximally until the tip of the greater trochanter. The gluteus brittany muscles were then spread using finger pressure and inter audra it was placed in a standard fashion. A small amount of bursal tissue was removed and then the external rotators and capsule were then taken down and tagged for later repair. It should be noted t hat the hip itself was extremely malformed, slightly retroverted, and very close to the trochanter as well as relatively short in neck or at least covered by osteophytes. The hip was dislocated and a s tandard neck cut was performed only slightly shorter to allow for better visualization. As the head was being removed with the osteotome, a small crack was heard and very careful inspection revealed a crack in the greater trochanter. This was noted. It was not displaced at this time, and attention w as then turned to the acetabulum. The labrum and structures were removed from the hip and it was the n reamed in standard fashion using the somewhat malformed head as a guide. This was done until there was good bleeding bone. It was possible that we could continue to ream more centrally. However, de cision was made not to pursue that and some of the posterior wall was becoming quite thin. Therefore , decision made to move forward with size 60. 60 was then impacted. It did appear to be stable, but decision was made to probably put a screw there. Following this, attention was turned to the femur where a box printing machine operator was used to clear up some small amount of fragmentation. This does displace the t rochanter a little bit more. The canal finding reamer was then used followed by broaching to a size 2. After this, x-ray was performed to ensure good fill of the canal, also assess the position possib ly of the trochanter and position of the cup. Decision was made to retain the cup and screws placed as well as the liner. Following this, the final stem was placed. It was then trialed and attention was turned back to the trochanter. A hook plate was then applied. At first attempt, we placed a kitty k plate. Unfortunately, cerclage wire appeared to be superior to the lesser trochanter, deemed not t o be acceptable and removed. A second hook plate was placed, appeared to be placed in much better po sition, appears to control the tip of the trochanter both in visual inspection as well as on x-ray. After this, the hip was then re-trialed. Decision was made to move forward with the +8 as it appeare d to be the most stable giving better perhaps protection in case there is some weakness in abduction, decided to move forward with this as final, it was then placed. The hip was then copiously irrigate d and the external rotators were then repaired back as well as the capsule which was followed by repa ir of the fascia in a watertight fashion. This was then irrigated. Skin was closed using Vicryl sut ures followed by isamar. The patient was placed in Aquacel dressing, awakened, taken to recovery room in good condit ion. There were no complications. SE/MODL Voice ID: [id number] Report ID: [id number]
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
[2023-11-08 09:51] VITALS: O2SAT 100
[2023-11-08 12:17] VITALS: BP 140/83; TEMP 97.2
[2023-11-08 13:00] VITALS: BMI 33.6
--- NOTE | 2023-11-08 15:28 | P.PN ---
Date of Service: 11/08/23 Subjective: Doing well postoperatively Creatinine mildly elevated from previous ROS: 10 point ROS as noted above, otherwise negative Physical exam GEN: Alert, oriented, NAD HEENT: Normal conjunctiva, sclera anicteric CV: Regular rate and rhythm, no edema Pulm: Nonlabored respirations on room air ABD: Soft, nontender, nondistended MSK: No joint tenderness, dressing in place to right hip Integumentary: No rashes Neuro: Normal speech, normal affect Vitals reviewed Problem List Assessment: Severe right hip arthritis status post right total hip arthroplasty with crack of the greater trochanteric tip, hook plate placed Hypertension CKD 3 Plan: Severe right hip arthritis status post right total hip arthroplasty with crack of the greater trochanteric tip, hook plate placed Already working with PT As needed pain medications Plan for discharge with home health/PT Further management per Ortho Hypertension Home medications continued CKD 3 Consulted nephrology given mild ROLLY/CKD and lack of outpatient follow-up Seen by nephrology recommends continuation, dictations and follow-up in clinic in 2 weeks We will see Dr. Gandhi outpatient Time Spent Managing Pts Care (In Minutes): 35 DVT PPX: Lovenox/per Ortho surgery Code status: Full
== END 2023-11-08 14:43 | disposition home health service (06) ==
LOC: OR 06:12 → INTOOBSV 10:24 → 4TH 10:24
PROVIDERS: ADMIT Orthopaedic Surgery; ATTEND Orthopaedic Surgery
PROC: 0QH604Z Insertion of Internal Fixation Device into Right Upper Femur, Open Approach (ICD-10-PCS; 2023-11-07)
PROC: 0SR90JA Replacement of Right Hip Joint with Synthetic Substitute, Uncemented, Open Approach (ICD-10-PCS; principal; 2023-11-07 07:00)
DX: M16.11 Unilateral primary osteoarthritis, right hip (principal); S72.114A Nondisplaced fracture of greater trochanter of right femur, initial encounter for closed fracture; M96.89 Other intraoperative and postprocedural complications and disorders of the musculoskeletal system; Y65.8 Other specified misadventures during surgical and medical care; Y79.3 Surgical instruments, materials and orthopedic devices (including sutures) associated with adverse incidents; Y92.234 Operating room of hospital as the place of occurrence of the external cause
CPT/HCPCS: 27130; 27248; 93005; 85025; 81001; 80048; 36415 ×2; 85610; 88304; 88311; 85730; 85018 ×3; 85014 ×3; 80053; 71046; 73501; 97116 ×3; 97161; 97530 ×2; 94760; G0379; C1776; J2704 ×3; J3475 ×2; J1200; J2001 ×4; J1650; J2250; J3010; J1100; J2270; J0171 ×2; J1170; J2405 ×2; G0378 ×3; J7120 ×3; J7030 ×2; J0690 ×3